=== PATIENT | female | born 2000 | race Caucasian/White ===

== ENCOUNTER 2025-06-15 18:33 | Observation (INO) ==
[2025-06-15] MEDS: ONDANSETRON INJ 2 MG/ML 2 ML VIAL IV STA (19:19)
[2025-06-15] MEDS: diphenhydrAMINE 50 MG/ML VIAL IV STA ×2 (19:22→20:33)
[2025-06-15] MEDS: PLASMA-LYTE A 1,000 ML IV ONE (19:26)
[2025-06-15 19:28] LABS: Hematocrit (blood only) 35.3 % (37.0-47.0); Hemoglobin 11.7 g/dL (12.0-16.0); Immature Granulocytes # (auto) 0.03 K/uL (0.01-0.20); Immature Granulocytes % (auto) 0.4 %; Mean Corpuscular Hemoglobin 31.3 pg (25.0-34.0); Mean Corpuscular Volume 94.4 fL (80.0-100.0); Platelet Count 234 K/uL (130-400); RDW Standard Deviation 41.6 fL (36.4-46.3); Red Blood Count 3.74 M/uL (4.20-5.40); White Blood Count 7.27 K/ul (4.8-10.8)
[2025-06-15 19:42] LABS: Appearance Urine Cloudy (Clear)
[2025-06-15 19:44] LABS: Alanine Aminotransferase 7.0 U/L (7-52); Albumin Globulin Ratio 1.3 (0.9-2); Albumin Level 3.9 gm/dl (3.4-5.0); Alkaline Phosphatase 52.0 U/L (34-104); Anion Gap 5.0 (3-11); Bilirubin,Total 0.2 mg/dl (0.2-1.0); Blood Urea Nitrogen 6.0 mg/dl (6-23); Calcium 9.0 mg/dl (8.6-10.3); Carbon Dioxide 28.0 mmol/L (21-32); Chloride 106.0 mmol/L (98-107); Creatinine Clr Calc Pharmacy 141.8 ml/min; Epithelial Cell Urine >20 /hpf (0-2); Globulin 2.9 gm/dl (2.5-4.0); Glucose 94.0 mg/dl (70-99(Fasting)); Lipase 25.0 U/L (11-82); Potassium 3.9 mmol/L (3.5-5.1); Sodium 139.0 mmol/L (136-145); Total Protein 6.8 gm/dl (6.0-8.3)
--- NOTE | 2025-06-15 19:57 | XRay Report ---
Technique: A frontal view of the chest was obtained Findings: There are no confluent pulmonary infiltrates. The heart size is within normal limits. No pleural effusion or pneumothorax is seen. There is no definite pulmonary nodule. No fracture is noted. No foreign body is seen Impression: No active disease Electronically signed by Carlos Tipton 06-15-2025 7:55 PM
[2025-06-15] MEDS: OPTIRAY 320 100ml IV ONE (20:11)
--- NOTE | 2025-06-15 20:35 | CT Scan Report ---
Exam(s): CT ABDOMEN + PELVIS With Contrast EXAM: CT Abdomen and Pelvis With Intravenous Contrast CLINICAL HISTORY: Reason for exam: recent lap for endo, now severe flank and abd pain. TECHNIQUE: Axial computed tomography images of the abdomen and pelvis with intravenous contrast. CTDI is 13.44 mGy and DLP is 615.29 mGy-cm. Automated exposure control was utilized for the study. A dose lowering technique was utilized adhering to the principles of ALARA. COMPARISON: CT abdomen pelvis 06/12/2025 FINDINGS: ABDOMEN: Liver: Unremarkable. Gallbladder and bile ducts: Unremarkable. Pancreas: Unremarkable. Spleen: Unremarkable. Adrenals: Unremarkable. Kidneys and ureters: Unremarkable. No obstructing stones. No hydronephrosis. Stomach and bowel: Unremarkable. PELVIS: Appendix: No findings to suggest acute appendicitis. Bladder: Small amount of gas within the bladder. No mucosal thickening or stone. Reproductive: Status post hysterectomy. No adnexal lesion. ABDOMEN and PELVIS: Intraperitoneal space: Unremarkable. No free air. No significant fluid collection. Bones/joints: No acute fracture. Soft tissues: Unremarkable. Vasculature: Unremarkable. Lymph nodes: Unremarkable. IMPRESSION: No acute findings in the abdomen or pelvis. Electronically signed by: Filemon Allred MD 06/15/25 20:34 PM
--- NOTE | 2025-06-15 20:53 | Emergency Department Note ---
Impression & Plan Acute pyelonephritis, Anemia, Post-operative pain, Acute flank pain ED Provider Note NAME: EDITA ORTEGA AGE: 25 SEX: F : 2000 ARRIVES VIA: Walk-In INFORMANT: Patient, ED PROVIDER(S): Abdelrahman Burger DO CHIEF COMPLAINT: flank pain HPI: This is a 25-year-old female with the PMHx of severe endometriosis and asthma presenting to [facility] for further evaluation of flank pain with urinary symptoms. Patient reports that she had a recent laparoscopic procedure by [facility] Carlos for endometriosis. She states that she had endometriosis removed as well as biopsies. Patient states that she has had ongoing pain since the procedure. Continues with urinary frequency and dysuria. Patient states her pain is worse in the left flank. She states that she followed up with [facility] Carlos and was told that she may have a UTI. She was given a dose of ceftriaxone this morning. She states that she has been in and out of the emergency department since the procedure due to severe pain. They deny chills. No cough or congestion. Denies chest pain or palpitations. No shortness of breath. Patient has been nauseous. She has not been able to tolerate much by mouth secondary to her symptoms. No recent changes in bowel movements. Patient denies recent changes in medications or OTC supplements. Patient offers no other complaints, today. ADDITIONAL HISTORY OBTAINED: Per HPI Chronic Medical/Social Conditions Affecting Care: Per HPI PAST MEDICAL HISTORY: See Below PAST SURGICAL HISTORY: See Below FAMILY HISTORY: See Below SOCIAL HISTORY: See Below HOME MEDICATIONS: See Below ALLERGIES: See Below VITALS: See Below PHYSICAL EXAMINATION: GENERAL: Sitting up in bed, alert, well appearing, well nourished, no distress, non-toxic EYE EXAM: normal conjunctiva. PERRL and EOM's grossly intact. OROPHARYNX: no exudate, no erythema, lips, buccal mucosa, and tongue normal and mucous membranes are dry NECK: supple, no nuchal rigidity, no adenopathy, non-tender LUNGS: Clear to auscultation. Normal chest wall mechanics HEART: no murmurs, regular rate, regular rhythm ABDOMEN: abdomen soft, diffuse tenderness, no masses, no rebound or guarding. Well healed incisions. BACK: Back is symmetrical on inspection and there is no deformity, no midline tenderness. L CVA tenderness. SKIN: no rashes and no bruising UPPER EXTREMITIES: upper extremities are grossly normal. LOWER EXTREMITIES: No pitting edema. NEURO EXAM: Normal sensorium, GCS 15, normal speech, no gross weakness of arms, no gross weakness of legs. MEDICAL DECISION MAKING: Differential diagnoses includes but not limited to appendicitis, bowel obstruction, diverticulitis, malignancy, nephrolithiasis, gastroenteritis, pancreatitis, hepatobiliary disease, UTI, STI, ovarian torsion, , PID, ovarian cyst, ovarian cyst rupture, vaginitis In summary, this is a 25 year old female who presented with flank pain and urinary symptoms. Differential as above. Nursing notes and pertinent past medical records reviewed. Vital signs reviewed and the patient is afebrile and HDS. History and presentation revealed recent laparoscopic procedure for endometriosis. Now with possible UTI and pyelonephritis. Received CTX this AM, will hold on further antibiotics. Physical examination revealed as above. As a result of my initial evaluation, IV access was established and the patient was placed on CCRM. Therapeutics ordered include IVFR, IV Zofran and IV Fentanyl. CTAP will be ordered for possible postoperative complication or pyelonephritis. Diagnostics interpreted by me include EKG and cardiac monitoring as listed below: -Cardiac Monitoring: An order was placed for continuous cardiac monitoring. The monitor shows a rate of 80-100s with regular rhythm. -ECG: Normal sinus rhythm at a ventricular rate of [address] segment changes to suggest STEMI. Intervals are within normal limits. Patient completed laboratory studies and imaging. Results independently interpreted by me are mild anemia. No significant leukocytosis or elevation of procalcitonin. Normal kidney function electrolytes. Urinalysis shows evidence of UTI. The patient was managed with further IV opiates and IVFR as she continued to have pain. IVP Morphine, Toradol and Tylenol ordered.. The patient's workup is reassuring today including relatively normal labs and a CT abdomen/pelvis that revealed no acute pathology, the patient continues to have severe pain. She has significant urinary frequency and dysuria. She has had intractable lower back and flank pain. I question whether the patient has pyelonephritis. She is recently in the postoperative period from a laparoscopic procedure for endometriosis. This is likely compounding the patient's presentation today. Patient has failed to improve despite multiple doses of pain medications, IV fluid resuscitation and opiates. Patient feels uncomfortable with going home as she cannot tolerate food and continues to have severe pain. I will ask the hospitalist to observe the patient overnight for improvement. Ultimately, the decision was made to admit the patient for acute pyelonephritis with postoperative pain. I discussed the case with the hospitalist service via telephone/Tiger[employer] and they are agreeable to admit the patient to their services. Based on the above, including the patient's age, coexisting illnesses, labs, imaging, and exam findings the decision to treat as an inpatient. I discussed the patient with the hospitalist team who recommended admission to their services. They received the medications, treatments, interventions indicated above and their condition remained stable. I discussed my findings with the patient and their family and they understand and agree with the treatment plan. All patient / family questions were answered to their satisfaction. Consults/Care Managements Discussions: Per [facility] ER treatment provided: See above Procedures:none Critical Care: None The chart was completed utilizing [employer] Speech voice recognition software. Grammatical errors, random word insertions, pronoun errors, and incomplete sentences are an occasional consequence of this system due to software limitations, ambient noise, and hardware issues. Any formal questions or concerns about the content, text, or information contained within the body of this dictation should be directly addressed to the physician for clarification. 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: No Beliefs That Will Affect Care: None Current Living Situation: Alone Current Living Situation Comment: with child Other Information That Helps Us Care for You: No Feels Safe at Home: Yes Safety Concerns: Feels Safe At This Time Assistive Devices: Oxygen - at Night Allergies Allergies Allergy/AdvReac Type Severity Reaction Status Date / Time amoxicillin Allergy Intermediate Hives Verified 06/15/25 20:51 Iodinated Contrast Media Allergy Intermediate Hives Verified 06/15/25 20:51 Penicillins Allergy Intermediate Hives Verified 06/15/25 20:51 Home Meds Home Medications Medication Instructions Recorded Confirmed albuterol sulfate 90 mcg/actuation 2 puff inhalation Q4H PRN 02/24/22 06/15/25 aerosol inhaler (Ventolin HFA) COUGH/SHORTNESS OF BREATH/WHEEZE fluticasone fur. 200 mcg-umeclid 1 inh inhalation DAILY 07/09/22 06/15/25 62.5 mcg-vilant 25 mcg inhalat.powder (Trelegy Ellipta) mepolizumab 100 mg/mL subcutaneous 300 mg subcut MONTHLY 07/09/22 06/15/25 auto-injector (Nucala) ipratropium 0.5 mg-albuterol 3 mg 3 ml inhalation Q6 PRN Shortness 06/04/24 06/15/25 (2.5 mg base)/3 mL nebulization Of Breath Or Wheezing soln buspirone 5 mg tablet 5 mg PO BID PRN Anxiety 04/05/25 06/15/25 duloxetine 30 mg capsule,delayed 30 mg PO DAILY 04/05/25 06/15/25 release dupilumab 300 mg/2 mL subcutaneous 300 mg subcut Q28D 06/15/25 06/15/25 pen injector (Dupixent) ibuprofen 600 mg tablet 600 mg PO Q6H 06/15/25 06/15/25 oxycodone 5 mg capsule 5 mg PO Q6H PRN Breakthrough Pain 06/15/25 06/15/25 dexamethasone 6 mg tablet 6 mg PO DAILY 06/16/25 06/16/25 Previous Rx's Medication Instructions Recorded tramadol 50 mg tablet 50 mg PO BID PRN pain #14 tabs 05/18/25 cefdinir 300 mg capsule 300 mg PO BID 4 days #8 caps 06/17/25 Results & Data (ED) Vital Signs Vital Signs - 24 hr 06/15/25 18:39 06/15/25 19:04 06/15/25 19:29 Temperature 36.6 C Temperature Source Temporal Artery Scan Pulse Rate 89 92 H Pulse Rate [Apical] 92 H Pulse Rhythm [Apical] Pulse Strength [Apical] Respiratory Rate 18 16 Respiratory Effort / Characteristics Non-Labored Spontaneous Respiratory Depth Normal Respiratory Pattern Regular Blood Pressure 124/75 Blood Pressure [Left Arm] 123/89 Blood Pressure Mean 91 Blood Pressure Mean [Left Arm] 100 Blood Pressure Position [Left Arm] Pulse Oximetry 99 100 Oxygen Delivery Method Room Air Room Air Sepsis Recent Fever Within 48 Hours No Sepsis New/Unexplained Change in Mental Status No Sepsis Action Taken by Nursing No Action Required 06/15/25 20:01 06/15/25 20:24 06/15/25 22:00 Temperature Temperature Source Pulse Rate Pulse Rate [Apical] 84 86 103 H Pulse Rhythm [Apical] Regular Pulse Strength [Apical] Normal Respiratory Rate 18 16 16 Respiratory Effort / Characteristics Non-Labored Spontaneous Non-Labored Spontaneous Non-Labored Spontaneous Respiratory Depth Normal Respiratory Pattern Regular Blood Pressure Blood Pressure [Left Arm] 113/73 125/77 110/66 Blood Pressure Mean Blood Pressure Mean [Left Arm] 86 93 80 Blood Pressure Position [Left Arm] Lying Pulse Oximetry 98 100 97 Oxygen Delivery Method Room Air Room Air Room Air Sepsis Recent Fever Within 48 Hours Sepsis New/Unexplained Change in Mental Status Sepsis Action Taken by Nursing 06/15/25 23:00 Temperature Temperature Source Pulse Rate 89 Pulse Rate [Apical] Pulse Rhythm [Apical] Pulse Strength [Apical] Respiratory Rate 20 Respiratory Effort / Characteristics Respiratory Depth Respiratory Pattern Blood Pressure 112/65 Blood Pressure [Left Arm] Blood Pressure Mean 77 Blood Pressure Mean [Left Arm] Blood Pressure Position [Left Arm] Pulse Oximetry 96 Oxygen Delivery Method Room Air Sepsis Recent Fever Within 48 Hours Sepsis New/Unexplained Change in Mental Status Sepsis Action Taken by Nursing Laboratory Data 06/17/25 07:04 06/17/25 07:04 Lab Results 06/15/25 Range/Units 19:14 WBC 7.27 (4.8-10.8) K/ul RBC 3.74 L (4.20-5.40) M/uL Hgb 11.7 L (12.0-16.0) g/dL Hct 35.3 L (37.0-47.0) % MCV 94.4 (80.0-100.0) fL MCH 31.3 (25.0-34.0) pg MCHC 33.1 (32.0-36.0) g/dL RDW Std Deviation 41.6 (36.4-46.3) fL RDW Coeff of [place] 12.0 (11.5-14.5) % Plt Count 234 (130-400) K/uL MPV 11.4 (9.4-12.4) fL Immature Gran % (Auto) 0.4 % Neut % (Auto) 48.5 % Lymph % (Auto) 34.1 % Carroll % (Auto) 10.5 % Eos % (Auto) 5.4 % Baso % (Auto) 1.1 % Neut # (Auto) 3.53 (1.40-6.50) K/uL Lymph # (Auto) 2.48 (1.20-3.40) K/uL Carroll # (Auto) 0.76 H (0.11-0.59) K/uL Eos # (Auto) 0.39 (0.00-0.50) K/uL Baso # (Auto) 0.08 (0.00-0.20) K/uL Immature Gran # (Auto) 0.03 (0.01-0.20) K/uL Sodium 139 (136-145) mmol/L Potassium 3.9 (3.5-5.1) mmol/L Chloride 106 (98-107) mmol/L Carbon Dioxide 28 (21-32) mmol/L Anion Gap 5 (3-11) BUN 6 (6-23) mg/dl Creatinine 0.60 (0.6-1.2) mg/dl Est Cr Clr Drug Dosing 141.8 ml/min eGFR 129.27 BUN/Creatinine Ratio 10.0 (10-20) Glucose 94 (70-99(Fasting)) mg/dl Calcium 9.0 (8.6-10.3) mg/dl Magnesium 2.2 (1.7-2.4) mg/dl Total Bilirubin 0.2 (0.2-1.0) mg/dl AST 11 L (13-39) U/L ALT 7 (7-52) U/L Alkaline Phosphatase 52 (34-104) U/L Total Protein 6.8 (6.0-8.3) gm/dl Albumin 3.9 (3.4-5.0) gm/dl Globulin 2.9 (2.5-4.0) gm/dl Albumin/Globulin Ratio 1.3 (0.9-2) Lipase 25 (11-82) U/L Procalcitonin < 0.02 (0-0.5) ng/ml Urine Color See Comment Urine Appearance Cloudy A (Clear) Urine pH Not Reportable Ur Specific Rowe 1.004 (1.000-1.030) Urine Protein Not Reportable Urine Glucose (UA) Not Reportable Urine Ketones Not Reportable Urine Blood Not Reportable Urine Nitrite Not Reportable Urine Bilirubin Not Reportable Urine Urobilinogen Not Reportable Ur Leukocyte Esterase Not Reportable Urine RBC 0-2 (0-2) /hpf Urine WBC >50 H (0-5) /hpf Ur Epithelial Cells >20 H (0-2) /hpf Urine Bacteria 3+ H (None Seen) Urine Comment Administered Medications Discontinued Medications Acetaminophen (Acetaminophen 325 Mg Tab) 650 mg PO QID PRN PRN Reason: pain/fever Stop: 07/15/25 23:31 Last Admin: 06/17/25 10:59 Dose: 650 mg Documented By: JENNIFER Dexamethasone (Dexamethasone 1 Mg Tab) 6 mg PO DAILY MARGUERITE Stop: 07/16/25 08:59 Last Admin: 06/17/25 09:22 Dose: 6 mg Documented By: Admin: 06/16/25 09:39 Dose: 6 mg Documented By: TAIWO Diphenhydramine HCl (Diphenhydramine 50 Mg/Ml Vial) 25 mg IV NOW STA Stop: 06/15/25 18:52 Last Admin: 06/15/25 19:22 Dose: 25 mg Documented By: LIZETH Diphenhydramine HCl (Diphenhydramine 50 Mg/Ml Vial) 25 mg IV NOW STA Stop: 06/15/25 20:29 Last Admin: 06/15/25 20:33 Dose: 25 mg Documented By: LIZETH Duloxetine HCl (Duloxetine Hcl 30 Mg Cap) 30 mg PO DAILY MARGUERITE Stop: 07/16/25 08:59 Last Admin: 06/17/25 09:22 Dose: Not Given Documented By: Admin: 06/16/25 09:33 Dose: Not Given Documented By: TAIWO Fentanyl Citrate (Fentanyl Citrate Pf 100 Mcg/2 Ml Vial) 50 mcg IV NOW ONE Stop: 06/15/25 18:52 Last Admin: 06/15/25 19:15 Dose: 50 mcg Documented By: LIZETH Fluticasone Furoate (Fluticasone Furoate 200mcg 14 Puffs/Inhaler) 1 puffs INH DAILY MARGUERITE Stop: 07/16/25 08:59 Last Admin: 06/17/25 09:23 Dose: 1 puffs Documented By: Admin: 06/16/25 09:41 Dose: 1 puffs Documented By: AC Parenteral Electrolytes (Plasma-Lyte A Ph 7.4) 1,000 mls @ 999 mls/hr IV .Q1H1M ONE Stop: 06/15/25 19:52 Last Infusion: 06/15/25 20:51 Dose: Infused Documented By: Admin: 06/15/25 19:26 Dose: 999 mls/hr Documented By: LIZETH Parenteral Electrolytes (Plasma-Lyte A Ph 7.4) 500 mls @ 999 mls/hr IV .Q31M ONE Stop: 06/15/25 21:42 Last Infusion: 06/15/25 22:16 Dose: Infused Documented By: Admin: 06/15/25 21:41 Dose: 999 mls/hr Documented By: LIZETH Acetaminophen (Ofirmev) 1,000 mg in 100 mls @ 400 mls/hr IV NOW STA Stop: 06/15/25 23:32 Last Infusion: 06/15/25 23:41 Dose: Infused Documented By: Admin: 06/15/25 23:26 Dose: 400 mls/hr Documented By: MBL Promethazine HCl (Phenergan) 6.25 mg in 50.25 mls @ 201 mls/hr IV Q6H PRN PRN Reason: Nausea And Vomiting Stop: 07/15/25 23:31 Last Infusion: 06/16/25 11:38 Dose: Infused Documented By: hilary Admin: 06/16/25 11:13 Dose: 201 mls/hr Documented By: hilary Potassium Chloride/Sodium Chloride (Normal Saline W/20 Meq Kcl) 20 meq in 1,000 mls @ 100 mls/hr IV .Q10H ONE Stop: 06/16/25 10:09 Last Infusion: 06/16/25 10:36 Dose: Infused Documented By: hilary Admin: 06/16/25 00:25 Dose: 100 mls/hr Documented By: MBL Ceftriaxone Sodium (Rocephin) 2,000 mg in 50 mls @ 100 mls/hr IV Q24H MARGUERITE Stop: 06/21/25 09:59 Last Infusion: 06/17/25 10:40 Dose: Infused Documented By: Admin: 06/17/25 09:23 Dose: 100 mls/hr Documented By: Infusion: 06/16/25 10:36 Dose: Infused Documented By: hilary Admin: 06/16/25 09:44 Dose: 100 mls/hr Documented By: TAIWO Ioversol (Optiray 320 100ml) 91 ml IV ONCE ONE Stop: 06/15/25 20:11 Last Admin: 06/15/25 20:11 Dose: 91 ml Documented By: SHRAONDA Ketorolac Tromethamine (Ketorolac Tromethamine 15 Mg/Ml Vial) 15 mg IV NOW STA Stop: 06/15/25 23:19 Last Admin: 06/15/25 23:26 Dose: 15 mg Documented By: FARSHAD Ketorolac Tromethamine (Ketorolac Tromethamine 15 Mg/Ml Vial) 15 mg IV Q6H PRN PRN Reason: Pain Stop: 06/20/25 23:31 Last Admin: 06/16/25 07:43 Dose: 15 mg Documented By: hilary Loratadine (Loratadine 10 Mg Tab) 10 mg PO NOW ONE Stop: 06/16/25 20:26 Last Admin: 06/16/25 20:51 Dose: 10 mg Documented By: glendy Methylprednisolone (Methylprednisolone 125 Mg/2 Ml Vial) 60 mg IV NOW STA Stop: 06/15/25 18:52 Last Admin: 06/15/25 19:23 Dose: 60 mg Documented By: LIZETH Morphine Sulfate (Morphine Sulfate 4 Mg/Ml 1 Ml Carp\Vial) 4 mg IV NOW STA Stop: 06/15/25 21:33 Last Admin: 06/15/25 21:38 Dose: 4 mg Documented By: LIZETH Morphine Sulfate (Morphine Sulfate 2 Mg/Ml Carp) 2 mg IV Q4H PRN PRN Reason: Mod-Sev Pain (Scale 4-10) Stop: 06/30/25 10:11 Last Admin: 06/16/25 20:11 Dose: 2 mg Documented By: glendy Admin: 06/16/25 15:35 Dose: 2 mg Documented By: hilary Admin: 06/16/25 11:32 Dose: 2 mg Documented By: hilary Ondansetron HCl (Ondansetron Inj 2 Mg/Ml 2 Ml Vial) 4 mg IV NOW STA Stop: 06/15/25 18:52 Last Admin: 06/15/25 19:19 Dose: 4 mg Documented By: LIZETH Oxycodone HCl (Oxycodone Hcl Ir 5 Mg Tab (Immediate Release)) 5 mg PO Q4H PRN PRN Reason: Pain Stop: 06/29/25 23:31 Last Admin: 06/16/25 18:21 Dose: 5 mg Documented By: hilary Admin: 06/16/25 09:54 Dose: 5 mg Documented By: Admin: 06/16/25 05:45 Dose: 5 mg Documented By: Admin: 06/16/25 01:19 Dose: 5 mg Documented By: PAH Umeclidinium/Vilanterol (Umeclidinium/Vilanterol 62.5/25mcg 7 Puffs/Inhaler) 1 puffs INH DAILY MARGUERITE Stop: 07/16/25 08:59 Last Admin: 06/17/25 09:23 Dose: 1 puffs Documented By: Admin: 06/16/25 09:41 Dose: 1 puffs Documented By: AC Imaging Data Radiologist's Impression: Abdomen/Pelvis CT 06/15/25 18:51 Exam(s): CT ABDOMEN + PELVIS With Contrast EXAM: CT Abdomen and Pelvis With Intravenous Contrast CLINICAL HISTORY: Reason for exam: recent lap for endo, now severe flank and abd pain. TECHNIQUE: Axial computed tomography images of the abdomen and pelvis with intravenous contrast. CTDI is 13.44 mGy and DLP is 615.29 mGy-cm. Automated exposure control was utilized for the study. A dose lowering technique was utilized adhering to the principles of ALARA. COMPARISON: CT abdomen pelvis 06/12/2025 FINDINGS: ABDOMEN: Liver: Unremarkable. Gallbladder and bile ducts: Unremarkable. Pancreas: Unremarkable. Spleen: Unremarkable. Adrenals: Unremarkable. Kidneys and ureters: Unremarkable. No obstructing stones. No hydronephrosis. Stomach and bowel: Unremarkable. PELVIS: Appendix: No findings to suggest acute appendicitis. Bladder: Small amount of gas within the bladder. No mucosal thickening or stone. Reproductive: Status post hysterectomy. No adnexal lesion. ABDOMEN and PELVIS: Intraperitoneal space: Unremarkable. No free air. No significant fluid collection. Bones/joints: No acute fracture. Soft tissues: Unremarkable. Vasculature: Unremarkable. Lymph nodes: Unremarkable. IMPRESSION: No acute findings in the abdomen or pelvis. Electronically signed by: Filemon Allred MD 06/15/25 20:34 PM Chest X-Ray 06/15/25 18:51 Technique: A frontal view of the chest was obtained Findings: There are no confluent pulmonary infiltrates. The heart size is within normal limits. No pleural effusion or pneumothorax is seen. There is no definite pulmonary nodule. No fracture is noted. No foreign body is seen Impression: No active disease Electronically signed by Carlos Tipton 06-15-2025 7:55 PM Discharge Plan Visit Data Chief Complaint: Flank Pain Stated Complaint: POSTOP PAIN KIDNEY INFECTION ED Provider: Abdelrahman Burger Discharge Problem: Acute pyelonephritis, Anemia, Post-operative pain, Acute flank pain Patient Disposition: Admitted As Inpatient Condition: Fair Discharge Instructions Interventions: ED Discharge Assessment Last Done: 06/16/25 00:18
[2025-06-15] MEDS: MoRPHine SULFATE 4 MG/ML 1 ML CARP\\VIAL IV STA (21:38)
[2025-06-15] MEDS: PLASMA-LYTE A 500 ML IV ONE (21:41)
[2025-06-15] MEDS: ACETAMINOPHEN 1,000 MG/100 ML VIAL IV STA (23:26)
[2025-06-15] MEDS: KETOROLAC TROMETHAMINE 15 MG/ML VIAL IV STA (23:26)
--- NOTE | 2025-06-15 23:28 | History & Physical Report ---
Date of Service June 15, 2025 Assessment & Plan (1) Lower abdominal pain: Plan: Assessment and plan below following discussion of case with ED provider and reviewing patient history/pertinent normal/abnormal diagnostic test results. 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 Patient denies suicidality. OBS Admit to medical Analgesia Judicious narcotic use Urine CS, Ceftriaxone for now DVT prophylaxis. SCDs Full code Text document was generated using [email or web address] voice recognition software. It may contain grammatical or spelling errors. Kindly contact undersigned for clarification of any documentation item in question. History of Present Illness Chief Complaint: Abdominal/flank pain Primary Care Provider: Kateryna Priest, History obtained from patient and records. 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 06/05 Patient underwent outpatient laparoscopic surgery for endometriosis at [facility] in [place]. Patient discharged with Locke catheter after procedure due to urinary retention. Locke catheter removed at home the following day. 06/09 Patient noted urinary retention symptoms after Locke catheter removal. Patient consulted [facility] in [place], [place] Bladder scan of 650 at the facility. Locke catheter placed. Patient mother informed ER provider that patient had communicated to her that patient "was tired of chronic pain and she was going to kill herself." Patient denied self-harm intent on consultation by ED provider. Locke catheter removed after few days. 06/12 [facility] ER evaluation for increasing lower abdominal pain going to the back. No fever, no chills, no vaginal bleeding. CT abdomen pelvis: Tiny locules of extraluminal gas seen throughout the abdomen particularly within the right upper quadrant. The source of this is not clearly appreciated on this exam Postop changes hysterectomy Subtle inflammatory changes about the cervical cuff may represent cervicitis in the appropriate clinical setting. UA WBC esterase positive Patient discharged home on Bactrim course. Persistent abdominal pain since leaving hospital. No chest pain, no SOB. No bleeding. 06/15 Patient consulted a [place] ER today. Patient given 1 dose of Ceftriaxone for possible UTI. Patient consulted [facility] ER for worsening symptoms. 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 200 mcg-umeclid 1 inh inhalation DAILY 07/09/22 06/15/25 History 62.5 mcg-vilant 25 mcg inhalat.powder (Trelegy Ellipta) mepolizumab 100 mg/mL subcutaneous 300 mg subcut MONTHLY 07/09/22 06/15/25 History auto-injector (Nucala) ipratropium 0.5 mg-albuterol 3 mg 3 ml inhalation Q6 PRN Shortness 06/04/24 06/15/25 History (2.5 mg base)/3 mL nebulization Of Breath Or Wheezing soln buspirone 5 mg tablet 5 mg PO BID PRN Anxiety 04/05/25 06/15/25 History duloxetine 30 mg capsule,delayed 30 mg PO DAILY 04/05/25 06/15/25 History release tramadol 50 mg tablet 50 mg PO BID PRN pain #14 tabs 05/18/25 06/15/25 Rx dupilumab 300 mg/2 mL subcutaneous 300 mg subcut Q28D 06/15/25 06/15/25 History pen injector (Dupixent) ibuprofen 600 mg tablet 600 mg PO Q6H 06/15/25 06/15/25 History oxycodone 5 mg capsule 5 mg PO Q6H PRN Breakthrough Pain 06/15/25 06/15/25 History dexamethasone 6 mg tablet 6 mg PO DAILY 06/16/25 06/16/25 History Past Med/Surg History Problem List (Updated 06/13/25 @ 00:23 by Brayden Peters M.D.) UTI (urinary tract infection) (Acute) Lower abdominal pain (Acute) Encounter for pre-operative examination Medical [facility] Anxiety Surgical History Hx of appendectomy Social History Smoking Status: Never smoker Preferred Language: Greek Feels Safe at Home: Yes Review of Systems Review of Systems: As per HPI, all other systems reviewed and negative Physical Exam Physical Exam: GENERAL: uncomfortable, no respiratory distress SKIN: Normal color, warm HEENT: Bespectacled, pink palpebral conjunctivae, no ptosis, dry buccal mucosa NECK : Supple, no tenderness CHEST : CTA, no tenderness HEART : RRR, no obvious murmurs ABDOMEN: Some distention, hypogastric tenderness EXTREMITIES : No LE swelling/tenderness, palpable pulses, no other conspicuous deformities noted NEUROLOGIC : Coherent, no facial asymmetry, no other gross focality Results & Data Results & Data Vital Signs (Past 12 Hours) Vital Signs Temp Pulse Pulse Resp BP BP Pulse Ox 06/15/25 23:00 89 20 112/65 96 06/15/25 22:00 103 H 16 110/66 97 06/15/25 20:24 86 16 125/77 100 06/15/25 20:01 84 18 113/73 98 06/15/25 19:29 92 H 06/15/25 19:04 92 H 16 123/89 100 06/15/25 18:39 36.6 C 89 18 124/75 99 O2 Del Method 06/15/25 23:00 Room Air 06/15/25 22:00 Room Air 06/15/25 20:24 Room Air 06/15/25 20:01 Room Air 06/15/25 19:29 06/15/25 19:04 Room Air 06/15/25 18:39 Room Air Laboratory Results Laboratory Results WBC 7.27 K/ul (4.8-10.8) 06/15/25 19:14 RBC 3.74 M/uL (4.20-5.40) L 06/15/25 19:14 Hgb 11.7 g/dL (12.0-16.0) L 06/15/25 19:14 Hct 35.3 % (37.0-47.0) L 06/15/25 19:14 MCV 94.4 fL (80.0-100.0) 06/15/25 19:14 MCH 31.3 pg (25.0-34.0) 06/15/25 19:14 MCHC 33.1 g/dL (32.0-36.0) 06/15/25 19:14 RDW Std Deviation 41.6 fL (36.4-46.3) 06/15/25 19:14 RDW Coeff of [place] 12.0 % (11.5-14.5) 06/15/25 19:14 Plt Count 234 K/uL (130-400) 06/15/25 19:14 MPV 11.4 fL (9.4-12.4) 06/15/25 19:14 Immature Gran % (Auto) 0.4 % 06/15/25 19:14 Neut % (Auto) 48.5 % 06/15/25 19:14 Lymph % (Auto) 34.1 % 06/15/25 19:14 [place] % (Auto) 10.5 % 06/15/25 19:14 Eos % (Auto) 5.4 % 06/15/25 19:14 Baso % (Auto) 1.1 % 06/15/25 19:14 Neut # (Auto) 3.53 K/uL (1.40-6.50) 06/15/25 19:14 Lymph # (Auto) 2.48 K/uL (1.20-3.40) 06/15/25 19:14 [place] # (Auto) 0.76 K/uL (0.11-0.59) H 06/15/25 19:14 Eos # (Auto) 0.39 K/uL (0.00-0.50) 06/15/25 19:14 Baso # (Auto) 0.08 K/uL (0.00-0.20) 06/15/25 19:14 Immature Gran # (Auto) 0.03 K/uL (0.01-0.20) 06/15/25 19:14 Sodium 139 mmol/L (136-145) 06/15/25 19:14 Potassium 3.9 mmol/L (3.5-5.1) 06/15/25 19:14 Chloride 106 mmol/L (98-107) 06/15/25 19:14 Carbon Dioxide 28 mmol/L (21-32) 06/15/25 19:14 Anion Gap 5 (3-11) 06/15/25 19:14 BUN 6 mg/dl (6-23) 06/15/25 19:14 Creatinine 0.60 mg/dl (0.6-1.2) 06/15/25 19:14 Est Cr Clr Drug Dosing 141.8 ml/min 06/15/25 19:14 eGFR 129.27 06/15/25 19:14 BUN/Creatinine Ratio 10.0 (10-20) 06/15/25 19:14 Glucose 94 mg/dl (70-99(Fasting)) 06/15/25 19:14 Calcium 9.0 mg/dl (8.6-10.3) 06/15/25 19:14 Total Bilirubin 0.2 mg/dl (0.2-1.0) 06/15/25 19:14 AST 11 U/L (13-39) L 06/15/25 19:14 ALT 7 U/L (7-52) 06/15/25 19:14 Alkaline Phosphatase 52 U/L (34-104) 06/15/25 19:14 Total Protein 6.8 gm/dl (6.0-8.3) 06/15/25 19:14 Albumin 3.9 gm/dl (3.4-5.0) 06/15/25 19:14 Globulin 2.9 gm/dl (2.5-4.0) 06/15/25 19:14 Albumin/Globulin Ratio 1.3 (0.9-2) 06/15/25 19:14 Lipase 25 U/L (11-82) 06/15/25 19:14 Procalcitonin < 0.02 ng/ml (0-0.5) 06/15/25 19:14 Urine Color See Comment 06/15/25 19:14 Urine Appearance Cloudy (Clear) A 06/15/25 19:14 Urine pH Not Reportable 06/15/25 19:14 Ur Specific [place] 1.004 (1.000-1.030) 06/15/25 19:14 Urine Protein Not Reportable 06/15/25 19:14 Urine Glucose (UA) Not Reportable 06/15/25 19:14 Urine Ketones Not Reportable 06/15/25 19:14 Urine Blood Not Reportable 06/15/25 19:14 Urine Nitrite Not Reportable 06/15/25 19:14 Urine Bilirubin Not Reportable 06/15/25 19:14 Urine Urobilinogen Not Reportable 06/15/25 19:14 Ur Leukocyte Esterase Not Reportable 06/15/25 19:14 Urine RBC 0-2 /hpf (0-2) 06/15/25 19:14 Urine WBC >50 /hpf (0-5) H 06/15/25 19:14 Ur Epithelial Cells >20 /hpf (0-2) H 06/15/25 19:14 Urine Bacteria 3+ (None Seen) H 06/15/25 19:14 Urine Comment 06/15/25 19:14 Impressions Abdomen/Pelvis CT 06/15/25 18:51 Exam(s): CT ABDOMEN + PELVIS With Contrast EXAM: CT Abdomen and Pelvis With Intravenous Contrast CLINICAL HISTORY: Reason for exam: recent lap for endo, now severe flank and abd pain. TECHNIQUE: Axial computed tomography images of the abdomen and pelvis with intravenous contrast. CTDI is 13.44 mGy and DLP is 615.29 mGy-cm. Automated exposure control was utilized for the study. A dose lowering technique was utilized adhering to the principles of ALARA. COMPARISON: CT abdomen pelvis 06/12/2025 FINDINGS: ABDOMEN: Liver: Unremarkable. Gallbladder and bile ducts: Unremarkable. Pancreas: Unremarkable. Spleen: Unremarkable. Adrenals: Unremarkable. Kidneys and ureters: Unremarkable. No obstructing stones. No hydronephrosis. Stomach and bowel: Unremarkable. PELVIS: Appendix: No findings to suggest acute appendicitis. Bladder: Small amount of gas within the bladder. No mucosal thickening or stone. Reproductive: Status post hysterectomy. No adnexal lesion. ABDOMEN and PELVIS: Intraperitoneal space: Unremarkable. No free air. No significant fluid collection. Bones/joints: No acute fracture. Soft tissues: Unremarkable. Vasculature: Unremarkable. Lymph nodes: Unremarkable. IMPRESSION: No acute findings in the abdomen or pelvis. Electronically signed by: Filemon Allred MD 06/15/25 20:34 PM Chest X-Ray 06/15/25 18:51 Technique: A frontal view of the chest was obtained Findings: There are no confluent pulmonary infiltrates. The heart size is within normal limits. No pleural effusion or pneumothorax is seen. There is no definite pulmonary nodule. No fracture is noted. No foreign body is seen Impression: No active disease Electronically signed by Carlos Tipton 06-15-2025 7:55 PM Diagnostic Findings EKG as per my interpretation : Rate 85, NSR, normal axis, no ischemia
[2025-06-16] MEDS ORDERED: IBUPROFEN 200 MG TAB PO PRN (00:11)
[2025-06-16] MEDS ORDERED: busPIRone 5 MG TAB PO PRN (00:11)
[2025-06-16] MEDS: NSS + 20MEQ KCL 20 MEQ/1,000 ML BAG IV ONE (00:25)
[2025-06-16 01:27] LABS: Magnesium 2.2 mg/dl (1.7-2.4)
[2025-06-16] MEDS: KETOROLAC TROMETHAMINE 15 MG/ML VIAL IV PRN (07:43)
[2025-06-16] MEDS ORDERED: NON-FORMULARY MEDICATION (Fluticasone-Umeclidin-Vilanter [Trelegy Ellipta] 200-62.5-25 mcg INH SCH (09:00)
[2025-06-16] MEDS: UMECLIDINIUM/VILANTEROL 62.5/25MCG 7 PUFFS/INHALER INH SCH (09:41)
[2025-06-16] MEDS: FLUTICASONE FUROATE 200MCG 14 PUFFS/INHALER INH SCH (09:41)
[2025-06-16] MEDS: cefTRIAXone SODIUM 2,000 MG/50 ML BAG IV SCH (09:44)
[2025-06-16] MEDS: PROMETHAZINE 6.25 MG/50.25 ML BAG IV PRN (11:13)
[2025-06-16] MEDS: MoRPHine SULFATE 2 MG/ML CARP IV PRN (11:32)
--- NOTE | 2025-06-16 13:20 | Hospitalist Progress Note ---
Date of Service June 16, 2025 Assessment & Plan (1) Lower abdominal pain: Plan: Recurrent UTI Recent gynecological procedure for endometriosis DD: Pelvic pain due to endometriosis --CT ABD:No acute findings in the abdomen or pelvis. --Urine culture pending -- empirically on IV Rocephin --Pain control as needed IV fluids as needed Other chronic conditions: Eosinophilic granulomatosis with polyangiitis cholangitis on chronic steroid therapy, patient follows with [facility] specialist Anxiety/mood disorder, at baseline as per patient. Patient denies suicidality. Asthma--no signs of exacerbation Continue home medications as able DVT Px: SCDs for now CODE STATUS Full code Admission and Anticipated Discharge Date Admission Date: June 15, 2025 Subjective Patient is seen and examined at bedside States having flank pain associated with nausea and dysuria Family at bedside Denies any chest pain, dyspnea, dizziness Review of Systems Review of Systems: All systems reviewed & are unremarkable except as noted in Subjective Physical Exam Physical Exam: Physical Exam: Vitals signs as noted above General Appearance:Moderately built and nourished, no apparent distress Head: normocephalic, Atraumatic Eyes: normal inspection, EOMI Neck: supple, Trachea midline Respiratory/Chest: Normal breath sounds, CTA, No accessory muscle use Cardiovascular: S1, S2, No murmur Abdomen/GI:Soft, mild flank tender, Bowel sounds present Extremities/Musculoskeletal:normal inspection, no edema Neurologic/Psych:AAOX3, grossly no focal neurological deficits Skin: normal color, warm Results & Data Results & Data Vital Signs (Past 12 Hours) Vital Signs Temp Pulse Resp BP Pulse Ox O2 Del Method 06/16/25 11:00 36.6 C 96 H 18 111/72 97 Room Air 06/16/25 07:22 36.9 C 82 18 98/58 L 97 Room Air 06/16/25 03:03 Room Air 06/16/25 02:45 36.7 C 84 16 106/69 97 Room Air Laboratory Results Short CBC 06/15/25 Range/Units 19:14 WBC 7.27 (4.8-10.8) K/ul Hgb 11.7 L (12.0-16.0) g/dL Hct 35.3 L (37.0-47.0) % Plt Count 234 (130-400) K/uL BMP 06/15/25 19:14 Sodium 139 Potassium 3.9 Chloride 106 Carbon Dioxide 28 BUN 6 Creatinine 0.60 Glucose 94 Calcium 9.0 Liver Function 06/15/25 Range/Units 19:14 Total Bilirubin 0.2 (0.2-1.0) mg/dl AST 11 L (13-39) U/L ALT 7 (7-52) U/L Alkaline Phosphatase 52 (34-104) U/L Albumin 3.9 (3.4-5.0) gm/dl Urine 06/15/25 Range/Units 19:14 Urine Color See Comment Urine Appearance Cloudy A (Clear) Urine pH Not Reportable Ur Specific [place] 1.004 (1.000-1.030) Urine Protein Not Reportable Urine Glucose (UA) Not Reportable
[2025-06-16 15:37] VITALS: BP 109/66
[2025-06-16 17:27] LABS: Appearance Urine Clear (Clear); Glucose Urine UA Negative (Negative)
[2025-06-16] MEDS: LORATADINE 10 MG TAB PO ONE (20:51)
--- NOTE | 2025-06-16 21:39 | Electrocardiogram Report ---
Test Reason : Blood Pressure : */* mmHG Vent. Rate : 85 BPM Atrial Rate : 85 BPM P-R Int : 144 ms QRS Dur : 72 ms QT Int : 346 ms P-R-T Axes : 40 65 52 degrees QTcB Int : 411 ms Normal sinus rhythm Normal ECG When compared with ECG of 20-Dec-2024 21:08, No significant change was found Confirmed by Dilshad Garcia ([id number]) on 06/16/2025 9:39:22 PM Referred By: REFERRED SELF Confirmed By: Dilshad Garcia
[2025-06-16 22:40] VITALS: RESP 18; TEMP 97.9; O2SAT 97
[2025-06-17 07:41] LABS: Hematocrit (blood only) 32.2 % (37.0-47.0); Hemoglobin 10.8 g/dL (12.0-16.0); Mean Corpuscular Hemoglobin 31.5 pg (25.0-34.0); Mean Corpuscular Volume 93.9 fL (80.0-100.0); Platelet Count 206 K/uL (130-400); RDW Standard Deviation 42.4 fL (36.4-46.3); Red Blood Count 3.43 M/uL (4.20-5.40); White Blood Count 12.95 K/ul (4.8-10.8)
[2025-06-17 08:00] LABS: Anion Gap 5.0 (3-11); Blood Urea Nitrogen 9.0 mg/dl (6-23); Calcium 8.8 mg/dl (8.6-10.3); Carbon Dioxide 26.0 mmol/L (21-32); Chloride 110.0 mmol/L (98-107); Creatinine Clr Calc Pharmacy 181.0 ml/min; Glucose 109.0 mg/dl (70-99(Fasting)); Potassium 4.0 mmol/L (3.5-5.1); Sodium 141.0 mmol/L (136-145)
[2025-06-17] MEDS: ACETAMINOPHEN 325 MG TAB PO PRN (10:59)
--- NOTE | 2025-06-17 12:34 | Discharge Summary ---
Date of Service June 17, 2025 Admission HPI Per Admitting Provider History obtained from patient and records. 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 06/05 Patient underwent outpatient laparoscopic surgery for endometriosis at [facility] in [place]. Patient discharged with Hull catheter after procedure due to urinary retention. Hull catheter removed at home the following day. 06/09 Patient noted urinary retention symptoms after [place] catheter removal. Patient consulted [facility] in [place], [place] Bladder scan of 650 at the facility. Hull catheter placed. Patient mother informed ER provider that patient had communicated to her that patient "was tired of chronic pain and she was going to kill herself." Patient denied self-harm intent on consultation by ED provider. Hull catheter removed after few days. 06/12 [facility] ER evaluation for increasing lower abdominal pain going to the back. No fever, no chills, no vaginal bleeding. CT abdomen pelvis: Tiny locules of extraluminal gas seen throughout the abdomen particularly within the right upper quadrant. The source of this is not clearly appreciated on this exam Postop changes hysterectomy Subtle inflammatory changes about the cervical cuff may represent cervicitis in the appropriate clinical setting. UA WBC esterase positive Patient discharged home on Bactrim course. Persistent abdominal pain since leaving hospital. No chest pain, no SOB. No bleeding. 06/15 Patient consulted a [place] ER today. Patient given 1 dose of Ceftriaxone for possible UTI. Patient consulted [facility] ER for worsening symptoms. 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 [employer] Admission Exam Per Admitting Provider GENERAL: uncomfortable, no respiratory distress SKIN: Normal color, warm HEENT: Bespectacled, pink palpebral conjunctivae, no ptosis, dry buccal mucosa NECK : Supple, no tenderness CHEST : CTA, no tenderness HEART : RRR, no obvious murmurs ABDOMEN: Some distention, hypogastric tenderness EXTREMITIES : No LE swelling/tenderness, palpable pulses, no other conspicuous deformities noted NEUROLOGIC : Coherent, no facial asymmetry, no other gross focality Principal Diagnosis Abdominal pain Possible UTI Discharge Exam Constitutional + well hydrated; no acute distress Eyes PERRL, conjunctivae normal, anicteric sclerae ENMT external ear and nose normal, oropharynx normal Respiratory normal respiratory effort, lungs clear to auscultation Cardiovascular Rate/Rhythm: regular rate and regular rhythm Gastrointestinal (Abdomen) normal bowel sounds, soft, nontender, no hepatosplenomegaly Musculoskeletal no cyanosis or clubbing, extremities motor strength 5/5 Neurologic PERRL, EOMI, accommodation nl, no face palsy, no dysarthria Psychiatric A+Ox3, euthymic affect Discharge Data Allergies Allergy/AdvReac Type Severity Reaction Status Date / Time amoxicillin Allergy Intermediate Hives Verified 06/15/25 20:51 Iodinated Contrast Media Allergy Intermediate Hives Verified 06/15/25 20:51 Penicillins Allergy Intermediate Hives Verified 06/15/25 20:51 Consultations 06/15/25 23:24 ED Decision to Admit Stat 06/16/25 15:22 HIM [Consult Health Information Management] Routine Ordered Studies 06/15/25 18:51 CT abd pelvis IV con only Stat Hospital Course (1) Lower abdominal pain: 25 year old woman with history of 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 -Initial urine culture was contaminated. Repeat urine culture is negative Patient was initially started on IV ceftriaxone. Patient seen and examined today. She reports resolution of symptoms. No abd pain, dysuria, freq, urgency or difficulty urinating Antibiotics changed to Cefdinir to complete a total of 7 days of treatment She was advised on need for follow up with her Primer Inspector as pain may be related to endometriosis or current procedure Grand parents at bedside updated as well Total Time Total Time Spent Total Time Spent (In Minutes): 35 Total Time Includes: Examination of the Patient, Discharge Planning and Medication Reconciliation Discharge Plan Discharge Items Patient Disposition: Home - Self-Care Reason For Visit: BACK PAIN Discharge Diagnosis: Possible urinary tract infection Activity: Resume your previous activity Non-emergency contact: Primary Care Provider and Loader Operator Call non-emergency contact if: you have any medication questions Follow-up/Referrals: Kateryna Priest, [Primary Care Provider] - 06/22/25 11:20 am (Date & Time 06/22/2025 11:20 AM Provider: Sandra Jay MD [facility] ) Diet: Regular Addtl Attending Provider Instructions: Ms Donna Watkins were hospitalized and managed for the above listed diagnosis. You are being discharged on few more days of antibiotics to complete treatment. Please ensure follow up with your Primer Inspector as we discussed. It was a pleasure taking care of you Pending Studies at Discharge: No Stand-Alone Forms: My [facility] [employer], Smoking Cessation Medications and DC Order Prescriptions: New cefdinir 300 mg capsule 300 mg PO BID 4 Days Qty: 8 0RF Rx Instructions: Start on 06/18/25 morning Continued Nucala 100 mg/mL Auto-Injector 300 mg SUBCUT MONTHLY Rx Instructions: Taken last week Trelegy Ellipta 200-62.5-25 mcg blister with device 1 inh INHALATION DAILY albuterol sulfate [Ventolin HFA] 90 mcg/actuation HFA aerosol inhaler 2 puff INHALATION Q4H PRN (Reason: COUGH/SHORTNESS OF BREATH/WHEEZE) tramadol 50 mg tablet 50 mg PO BID PRN (Reason: pain) Qty: 14 0RF oxycodone 5 mg capsule 5 mg PO Q6H PRN (Reason: Breakthrough Pain) ibuprofen 600 mg tablet 600 mg PO Q6H Dupixent Pen 300 mg/2 mL pen injector 300 mg SUBCUT Q28D Rx Instructions: given last week dexamethasone 6 mg tablet 6 mg PO DAILY ipratropium-albuterol 0.5 mg-3 mg(2.5 mg base)/3 mL solution for nebulization 3 ml INHALATION Q6 PRN (Reason: Shortness Of Breath Or Wheezing) buspirone 5 mg tablet 5 mg PO BID PRN (Reason: Anxiety) duloxetine 30 mg capsule,delayed release(DR/EC) 30 mg PO DAILY Discharge Orders: Discharge Order (Routine); Ordered 06/17/25 Ordered By: Brenda Milton Admission Data Admit Date/Time: 06/15/25 23:30 Attending Provider: Brenda Milton I. Admit Provider: Imer Leon Primary Care Provider: Kateryna Priest Other Providers: Imer Leon; Demetrio Albright Other Interventions: Discharge Summary Assessment (RN) Last Done: 06/17/25 14:14
[2025-06-17 14:17] VITALS: PULSE 96
== END 2025-06-17 14:20 | disposition home or self-care (01) ==
LOC: 3N 18:33 → ED 18:33 → SUATTDRO 23:30 → 3N 06-16 00:18